=== PATIENT | female | born 1930 ===

== ENCOUNTER 2016-06-27 16:19 | Emergency (ER) | payer SELFPAY ==
[2016-06-27 16:19] VITALS: BMI 18.6
[2016-06-27 16:29] VITALS: BP 178/99; PULSE 84; RESP 17; TEMP 98.7; O2SAT 99
[2016-06-27 17:31] LABS: BASO % 0.5 % (0.0-2.0); EOS # 0.2 K/uL (0.0-0.7); EOS % 3.7 % (0.0-4.0); LYMPH # 2.2 K/uL (1.0-4.3); LYMPH % 40.9 % (20.0-40.0); MEAN CELL VOLUME 85.4 fl (81.0-99.0); MEAN CORPUSCULAR HEMOGLOBIN 27.6 pg (27.0-31.0); MEAN CORPUSCULAR HGB CONC 32.4 g/dL (33.0-37.0); MEAN PLATELET VOLUME 10.6 fl (7.2-11.7); MONO # 0.6 K/uL (0.0-0.8); MONO % 11.4 % (0.0-10.0); NEUT # 2.3 K/uL (1.8-7.0); NEUT % 43.5 % (50.0-75.0); RED CELL DISTRIBUTION WIDTH 14.2 % (11.5-14.5); WHITE BLOOD COUNT 5.3 K/uL (4.8-10.8)
[2016-06-27 17:41] LABS: ALB/GLOB RATIO 1.1 (1.0-2.1); ALKALINE PHOSPHATASE 62 U/L (38-126); ALT/SGPT 23 U/L (9-52); AST/SGOT 62 U/L (14-36); BILIRUBIN,TOTAL 1.6 mg/dl (0.2-1.3); BLOOD UREA NITROGEN 21 mg/dl (7-17); CALCIUM 9.2 mg/dL (8.4-10.2); CARBON DIOXIDE 25 mmol/L (22-30); CHLORIDE 101 mmol/L (98-107); GFR AFRICAN-AMERICAN > 60; GLUCOSE,RANDOM 105 mg/dL (65-105); SODIUM 139 mmol/l (132-148); TOTAL PROTEIN 9.2 G/DL (6.3-8.2)
[2016-06-27 17:42] LABS: POTASSIUM 5.2 MMOL/L (3.6-5.0)
[2016-06-27 17:54] LABS: PARTIAL THROMBOPLASTIN TIME 32.8 SECONDS (23.3-32.5)
--- NOTE | 2016-06-27 18:40 | ED PDOC ---
Lower Extremity Pain/Injury Time Seen by Provider: 06/27/16 16:38 Chief Complaint (Nursing): Lower Extremity Problem/Injury Chief Complaint (Provider): Lower Extremity Problem History Per: Patient History/Exam Limitations: no limitations Onset/Duration Of Symptoms: Days (6x months) Current Symptoms Are (Timing): Still Present Severity: Moderate Additional Complaint(s): 85 year old female with a pertinent medical history of CHF, hypertension, and A- fib presents to the ED for a medical evaluation. She reports that she had a stent placed in her right groin 6x months ago and has been having foot changes since then. She went to the clinic today for an evaluation, and they sent her to the ED for further evaluation because her feet were cold to the touch. She denies having any other medical complaints. PMD: [facility]. Past Medical History Reviewed: Historical Data, Nursing Documentation, Vital Signs Vital Signs: Last Vital Signs Temp 98.7 F 06/27/16 16:24 Pulse 84 06/27/16 16:24 Resp 17 06/27/16 16:24 BP 178/99 H 06/27/16 16:24 Pulse Ox 99 06/27/16 16:24 - Medical History PMH: Atrial Fibrillation, CHF, HTN, Hyperlipidemia, Pulmonary Embolism Denies: HIV, Chronic Kidney Disease - Surgical History Surgical History: Denies: Pacemaker - Family History Family History: States: Unknown Family Hx - Social History Alcohol: None Drugs: Denies - Home Medications Home Medications: Ambulatory Orders Medication Instructions Recorded Carvedilol [Coreg] 3.125 mg PO Q12 #0 tab 11/26/15 Enalapril Maleate [Vasotec] 2.5 mg PO DAILY #0 tab 11/26/15 Furosemide [Lasix] 20 mg PO DAILY #0 tab 11/26/15 Warfarin [Coumadin] 1 mg PO DAILY #0 tab 11/26/15 Atorvastatin [Lipitor] 40 mg PO DAILY 02/23/16 oxyCODONE/Acetaminophen [Percocet 1 tab PO Q8H PRN 02/23/16 5/325 mg Tab] - Allergies Allergies/Adverse Reactions: Allergies Allergy/AdvReac Type Severity Reaction Status Date / Time No Known Allergies Allergy Verified 06/27/16 16:24 Review of Systems ROS Statement: Except As Marked, All Systems Reviewed And Found Negative Constitutional: Negative for: Fever, Chills Musculoskeletal: Positive for: Other (feet feel cold) Physical Exam - Reviewed Nursing Documentation Reviewed: Yes Vital Signs Reviewed: Yes - Physical Exam Appears: Positive for: Well, Non-toxic, No Acute Distress Head Exam: Positive for: ATRAUMATIC, NORMOCEPHALIC Skin: Positive for: Normal Color Cardiovascular/Chest: Positive for: Regular Rate, Rhythm Respiratory: Positive for: Normal Breath Sounds. Negative for: Respiratory Distress Extremity: Positive for: Other (left lower extremity: no edema. Right foot: necrotic 4th digit. edema to 2nd and 3rd digits. Unable to elicit DP pulses bilaterally. Temperature is the same and cool on both feet. Patient has full ROM of her toes. Sensation is intact.). Negative for: Calf Tenderness Neurologic/Psych: Positive for: Alert, Oriented (3x) - Laboratory Results Result Diagrams: 06/27/16 17:15 06/27/16 17:15 - ECG O2 Sat by Pulse Oximetry: 99 (RA) Pulse Ox Interpretation: Normal Medical Decision Making Medical Decision Makin:38 Initial impression: 85 year old female for medical evaluation of feet. Initial plan: * CMP * CBC * SED rate * PTT * prothrombin time * blood culture * XRay foot right 3 view * US duplex lower extremity artery right limited * reevaluation 18:36 Case discussed with Podiatry resident. 19:00 Patient is signed out by me to El Cadet MD pending reevaluation and final disposition. Scribe Attestation: Documented by Kirstin Manrique, acting as a scribe for Neeta Velez MD. Provider Scribe Attestation: All medical record entries made by the Scribe were at my direction and personally dictated by me. I have reviewed the chart and agree that the record accurately reflects my personal performance of the history, physical exam, medical decision making, and the department course for this patient. I have also personally directed, reviewed, and agree with the discharge instructions and disposition.
--- NOTE | 2016-06-27 19:26 | ED PDOC ---
- Laboratory Results Result Diagrams: 06/27/16 17:15 06/27/16 17:15 - ECG O2 Sat by Pulse Oximetry: 99 (RA) Pulse Ox Interpretation: Normal - CT Scan/US US duplex right lower extremity Other Rad Studies (CT/US): Read By Radiologist, Radiology Report Reviewed Medical Decision Making Medical Decision Makin:00 Patient is signed out to me by Neeta Velez MD pending reevaluation and final disposition. 20:54 US right lower extremity is read and reviewed by radiologist FINDINGS: Right common femoral artery: Appears patent. Demonstrates abnormal monophasic waveforms. Peak systolic velocity is 64 cm per sec. Right superficial femoral artery: No detectable flow is seen, compatible with occlusion. This finding was also described on the prior report. Right popliteal artery: Appears patent. Demonstrates abnormal dampened waveforms. Peak systolic velocity is 52 cm/s. Right anterior tibial artery: Appears patent. Demonstrates abnormal dampened waveforms. Peak systolic velocity is 25 cm/s. Right posterior tibial artery: Appears patent. Demonstrates abnormal dampened waveforms. Peak systolic velocity is 26 cm/s. Right dorsalis pedis artery: No detectable flow is seen, compatible with occlusion. This finding was also described on prior report. IMPRESSION: Occlusion of the right superficial femoral artery. Occlusion of the right dorsalis pedis artery. Above findings were also described on the report from a prior lower extremity arterial ultrasound of 01/21/2016. Right common femoral, popliteal, anterior tibial, and posterior tibial arteries are patent, but demonstrate abnormal wave forms. See above for remaining findings. 20:54 Patient was evaluated by podiatry resident Dr. Anderson. He reports that the patient has stable dry gangrene. Patient is stable for discharge to follow up with [employer] client solutions consultant in [place] Dr. Pena. Spoke with Dr. [facility] resident. She will coordinate further with podiatry and vascular. There is agreement upon discharge plan. Return if symptoms persist or worsen. Scribe Attestation: Documented by Kirstin Manrique, acting as a scribe for El Cadet MD. Provider Scribe Attestation: All medical record entries made by the Scribe were at my direction and personally dictated by me. I have reviewed the chart and agree that the record accurately reflects my personal performance of the history, physical exam, medical decision making, and the department course for this patient. I have also personally directed, reviewed, and agree with the discharge instructions and disposition. Disposition - Clinical Impression Clinical Impression: Peripheral vascular disease - POA Present On Arrival: None - Disposition Referrals: [facility] [Outside] Rajani Pena DPM [Doctor Podiatric Medicine] - Disposition: Routine/Home Disposition Time: 21:10 Condition: STABLE Instructions: Peripheral Vascular Disease (ED) Print Language: BELARUSIAN
--- NOTE | 2016-06-27 20:47 | CP.PCM.CON ---
History of Present Illness - History of Present Illness History of Present Illness: Patient brought to ED by family after visit with PCP at the [facility] due to right foot 5th and 4th digit gangrene. Family states that the toes have been black for about 6 months and that they see Dr. Pena at [facility] for routine foot care. Denies pain to the area 0/10. Denies any drainage or foul odor to area. Mentions she has had vascular procedures done by Dr. Solares at [facility] involving multiple stents to RLE. Denies F/ C/N/V/SOB. Review of Systems - Constitutional Constitutional: As Per HPI Past Patient History - Past Medical History & Family History Past Medical History?: Yes - Past Social History Alcohol: None Drugs: Denies - CARDIAC Hx Atrial Fibrillation: Yes Hx Congestive Heart Failure: Yes Hx Hypertension: Yes Hx Pacemaker: No - PULMONARY Hx Pulmonary Embolism: Yes - NEUROLOGICAL Hx Paralysis: No - HEENT Hx HEENT Problems: Yes Hx Cataracts: Yes - RENAL Hx Chronic Kidney Disease: No - ENDOCRINE/METABOLIC Hx Endocrine Disorders: No - HEMATOLOGICAL/ONCOLOGICAL Hx Human Immunodeficiency Virus (HIV): No - INTEGUMENTARY Hx Dermatological Problems: No - MUSCULOSKELETAL/RHEUMATOLOGICAL Hx Musculoskeletal Disorders: No - GASTROINTESTINAL Hx Gastrointestinal Disorders: No - GENITOURINARY/GYNECOLOGICAL Hx Genitourinary Disorders: No - PSYCHIATRIC Hx Psychophysiologic Disorder: No Hx Substance Use: No - SURGICAL HISTORY Hx Surgeries: Yes Other/Comment: greenfiel filter - ANESTHESIA Hx Anesthesia Reactions: Yes (DIFFICULTY WAKING) Hx Malignant Hyperthermia: No Meds Allergies/Adverse Reactions: Allergies Allergy/AdvReac Type Severity Reaction Status Date / Time No Known Allergies Allergy Verified 06/27/16 16:24 Physical Exam - Constitutional Appears: No Acute Distress - Extremities Exam Additional comments: RLE exam: Vascular: Dp and PT pulses non-palpable, CFT >5sec, temperature of digits cool to touch. Derm: Dry gangrenous changes to distal tip of 5th digit and distal 4th from PIPJ, no drainage, no malodor. Surrounding skin thin, shiny with diffuse erythema, no calor. Neuro: Gross sensation diminished. MSK: Decreased ROM at digits and MTPJs with rigid hammertoe contracture. MMT 4 /5. - Neurological Exam Neurological exam: Alert Results - Vital Signs Recent Vital Signs: Last Vital Signs Temp 98.7 F 06/27/16 16:24 Pulse 84 06/27/16 16:24 Resp 17 06/27/16 16:24 BP 178/99 H 06/27/16 16:24 Pulse Ox 99 06/27/16 20:17 - Labs Result Diagrams: 06/27/16 17:15 06/27/16 17:15 Labs: Laboratory Results - last 24 hr 06/27/16 06/27/16 06/27/16 17:15 17:15 17:15 WBC 5.3 RBC 5.27 H Hgb 14.6 Hct 45.0 MCV 85.4 MCH 27.6 MCHC 32.4 L RDW 14.2 Plt Count 154 MPV 10.6 Neut % (Auto) 43.5 L Lymph % (Auto) 40.9 H [place] % (Auto) 11.4 H Eos % (Auto) 3.7 Baso % (Auto) 0.5 Neut # 2.3 Lymph # 2.2 [place] # 0.6 Eos # 0.2 Baso # 0.0 ESR 24 PT 20.6 H INR 1.98 H APTT 32.8 H Sodium 139 Potassium 5.2 H Chloride 101 Carbon Dioxide 25 Anion Gap 18 BUN 21 H Creatinine 0.7 Est GFR ( Amer) > 60 Est GFR (Non-Af Amer) > 60 Random Glucose 105 Calcium 9.2 Total Bilirubin 1.6 H AST 62 H D ALT 23 Alkaline Phosphatase 62 Total Protein 9.2 H Albumin 4.9 Globulin 4.4 H Albumin/Globulin Ratio 1.1 Assessment & Plan - Assessment and Plan (Free Text) Assessment: 85 y/o female with dry gangrene of right foot 4th and 5th digits secondary to PAD, no clinical signs of infection. Plan: -evaluated and treated with all questions addressed and answered. -discussed with Dr. Aparicio. -educated on etiology of diagnoses. -advised to follow up with vascular doctor as outpt. -advised to follow up with Dr. Pena or Dr. Aparicio as outpt, family demonstrates understanding.
--- NOTE | 2016-06-27 20:55 | US ---
EXAM: US Duplex Right Lower Extremity Arteries CLINICAL HISTORY: 85 years old, female; Signs and symptoms; Other: Cold rt foot; Additional info: Cold r foot TECHNIQUE: Real-time ultrasound scan of the arteries of the right lower extremity with 2-D jain scale, color Doppler flow and spectral waveform analysis. EXAM DATE/TIME: 06/27/2016 4:44 PM COMPARISON: Report from a previous exam of 01/21/2016. FINDINGS: Right common femoral artery: Appears patent. Demonstrates abnormal monophasic waveforms. Peak systolic velocity is 64 cm per sec. Right superficial femoral artery: No detectable flow is seen, compatible with occlusion. This finding was also described on the prior report. Right popliteal artery: Appears patent. Demonstrates abnormal dampened waveforms. Peak systolic velocity is 52 cm/s. Right anterior tibial artery: Appears patent. Demonstrates abnormal dampened waveforms. Peak systolic velocity is 25 cm/s. Right posterior tibial artery: Appears patent. Demonstrates abnormal dampened waveforms. Peak systolic velocity is 26 cm/s. Right dorsalis pedis artery: No detectable flow is seen, compatible with occlusion. This finding was also described on prior report. IMPRESSION: Occlusion of the right superficial femoral artery. Occlusion of the right dorsalis pedis artery. Above findings were also described on the report from a prior lower extremity arterial ultrasound of 01/21/2016. Right common femoral, popliteal, anterior tibial, and posterior tibial arteries are patent, but demonstrate abnormal wave forms. See above for remaining findings.
--- NOTE | 2016-06-28 14:06 | RAD ---
PROCEDURE: Right Foot Radiographs. HISTORY: 4th digit necrotic COMPARISON: 01/21/2016. FINDINGS: BONES: No radiographic evidence of acute osteomyelitis. Particular attention directed to the 4th digit. Diffuse osteopenia identified. Questionable old and healed 5th metatarsal fracture. JOINTS: Osteoarthritic changes. These primarily affect proximal and distal interphalangeal joint distribution. SOFT TISSUES: Normal. OTHER FINDINGS: None. IMPRESSION: No acute findings related to/accounting for the clinical presentation.
== END 2016-06-27 21:33 | disposition home or self-care (01) ==
LOC: H.ER 16:19
DX: I73.9 Peripheral vascular disease, unspecified (principal); I48.91 Unspecified atrial fibrillation; I10 Essential (primary) hypertension; E78.5 Hyperlipidemia, unspecified; I50.9 Heart failure, unspecified; Z86.711 Personal history of pulmonary embolism

== ENCOUNTER 2016-11-10 17:25 | Observation (INO) | payer SELFPAY ==
[2016-11-10 17:25] VITALS: BMI 15.2
[2016-11-10] MEDS ORDERED: Labetalol 5 mg/ml Inj 20ML IVP STA (18:28)
--- NOTE | 2016-11-10 18:42 | ED PDOC ---
HPI: General Adult Time Seen by Provider: 11/10/16 18:27 Chief Complaint (Nursing): Headache Chief Complaint (Provider): Headache History Per: Patient History/Exam Limitations: no limitations Onset/Duration Of Symptoms: Days (x2) Current Symptoms Are (Timing): Still Present Additional Complaint(s): Edith Archuleta is an 86 year old female with previous medical history of hypertension, who presents to the emergency department, accompanied by family for an evaluation of high blood pressure associated with palpitations ongoing for 2 days. Denied any fever, chills, chest pain, shortness of breath, headache and dizziness. PMD: none provided Past Medical History Reviewed: Historical Data, Nursing Documentation, Vital Signs Vital Signs: Last Vital Signs Temp 97.8 F 11/11/16 08:21 Pulse 59 L 11/11/16 08:21 Resp 18 11/11/16 08:21 BP 175/67 H 11/11/16 08:21 Pulse Ox 99 11/11/16 08:21 - Medical History PMH: Atrial Fibrillation, CHF, HTN, Hyperlipidemia, Pulmonary Embolism Denies: HIV, Chronic Kidney Disease - Surgical History Surgical History: Denies: Pacemaker - Family History Family History: States: Unknown Family Hx - Home Medications Home Medications: Ambulatory Orders Medication Instructions Recorded Carvedilol [Coreg] 3.125 mg PO DAILY 11/10/16 Enalapril Maleate [Vasotec] 2.5 mg PO DAILY 11/10/16 Furosemide [Lasix] 20 mg PO DAILY 11/10/16 Warfarin [Coumadin] 1 mg PO DAILY 11/10/16 - Allergies Allergies/Adverse Reactions: Allergies Allergy/AdvReac Type Severity Reaction Status Date / Time No Known Allergies Allergy Verified 06/27/16 16:24 Review of Systems ROS Statement: Except As Marked, All Systems Reviewed And Found Negative Constitutional: Negative for: Fever, Chills Cardiovascular: Positive for: Palpitations. Negative for: Chest Pain Respiratory: Negative for: Shortness of Breath Neurological: Negative for: Headache, Dizziness Physical Exam - Reviewed Nursing Documentation Reviewed: Yes Vital Signs Reviewed: Yes - Physical Exam Appears: Positive for: Well, Non-toxic, No Acute Distress Head Exam: Positive for: ATRAUMATIC, NORMAL INSPECTION, NORMOCEPHALIC Skin: Positive for: Normal Color Cardiovascular/Chest: Positive for: Regular Rate, Rhythm. Negative for: Chest Non Tender, Murmur Respiratory: Positive for: Normal Breath Sounds, Accessory Muscle Use. Negative for: Decreased Breath Sounds, Crackles, Rales, Rhonchi, Wheezing, Respiratory Distress Gastrointestinal/Abdominal: Positive for: Normal Exam, Bowel Sounds, Soft. Negative for: Tenderness Extremity: Positive for: Normal ROM. Negative for: Tenderness, Pedal Edema, Calf Tenderness, Deformity Neurologic/Psych: Positive for: Alert, Oriented - Laboratory Results Result Diagrams: 11/10/16 18:44 11/10/16 18:44 - ECG O2 Sat by Pulse Oximetry: 98 (RA) Pulse Ox Interpretation: Normal Medical Decision Making Medical Decision Making: Initial Impression: Palpitations Initial Plan: * EKG * CMP * Troponin I * CBC * CXR * Trandate 10mg IVP Scribe Attestation: Documented by Rosa Bueno, acting as a scribe for Bertram Garcia MD. Provider Scribe Attestation: All medical record entries made by the Scribe were at my direction and personally dictated by me. I have reviewed the chart and agree that the record accurately reflects my personal performance of the history, physical exam, medical decision making, and the department course for this patient. I have also personally directed, reviewed, and agree with the discharge instructions and disposition. Disposition - Clinical Impression Clinical Impression: Hypertension - Patient ED Disposition Is Patient to be Admitted: Transfer of Care - Disposition Disposition: Transfer of Care Disposition Time: 19:00 Condition: FAIR Patient Signed Over To: Brittnee Liriano
[2016-11-10 18:50] LABS: BASO # 0.1 K/uL (0.0-0.2); BASO % 0.9 % (0.0-2.0); EOS # 0.3 K/uL (0.0-0.7); EOS % 4.7 % (0.0-4.0); HEMATOCRIT 43.8 % (34.0-47.0); LYMPH # 1.7 K/uL (1.0-4.3); LYMPH % 26.1 % (20.0-40.0); MEAN CELL VOLUME 87.7 fl (81.0-99.0); MEAN CORPUSCULAR HEMOGLOBIN 28.8 pg (27.0-31.0); MEAN CORPUSCULAR HGB CONC 32.9 g/dL (33.0-37.0); MEAN PLATELET VOLUME 10.6 fl (7.2-11.7); MONO # 0.7 K/uL (0.0-0.8); MONO % 10.6 % (0.0-10.0); NEUT # 3.7 K/uL (1.8-7.0); NEUT % 57.7 % (50.0-75.0); NRBC % 0.2 % (0.0-0.0); RED CELL DISTRIBUTION WIDTH 13.4 % (11.5-14.5); WHITE BLOOD COUNT 6.5 K/uL (4.8-10.8)
[2016-11-10 19:04] LABS: ALB/GLOB RATIO 1.3 (1.0-2.1); ALKALINE PHOSPHATASE 71 U/L (38-126); ALT/SGPT 23 U/L (9-52); AST/SGOT 29 U/L (14-36); BILIRUBIN,TOTAL 0.6 mg/dl (0.2-1.3); BLOOD UREA NITROGEN 20 mg/dl (7-17); CALCIUM 9.8 mg/dL (8.4-10.2); CARBON DIOXIDE 26 mmol/L (22-30); CHLORIDE 103 mmol/L (98-107); GFR AFRICAN-AMERICAN > 60; GLUCOSE,RANDOM 91 mg/dL (65-105); POTASSIUM 4.3 MMOL/L (3.6-5.0); SODIUM 142 mmol/l (132-148); TOTAL PROTEIN 8.3 G/DL (6.3-8.2)
--- NOTE | 2016-11-10 19:20 | ED PDOC ---
- Laboratory Results Result Diagrams: 11/10/16 18:44 11/10/16 18:44 - ECG O2 Sat by Pulse Oximetry: 98 (RA) Pulse Ox Interpretation: Normal Medical Decision Making Medical Decision Making: Time: 1899 --Patient was endorsed to provider by Dr. Bertram Garcia. Pending labs results and re-evaluation. 1999 Labs unremarkable. BP has improved but pt is now bradycardic, with some symptoms. Needs observation for continued cardiac optimization. FATIMAH Rodriguez FP resident for hospitalization. Scribe Attestation: Documented by Rosa Bueno, acting as a scribe for Brittnee Liriano MD. Provider Scribe Attestation: All medical record entries made by the Scribe were at my direction and personally dictated by me. I have reviewed the chart and agree that the record accurately reflects my personal performance of the history, physical exam, medical decision making, and the department course for this patient. I have also personally directed, reviewed, and agree with the discharge instructions and disposition. Disposition Counseled Patient/Family Regarding: Studies Performed, Diagnosis - Clinical Impression Clinical Impression: Hypertension, Bradycardia - POA Present On Arrival: None - Disposition Disposition: Hospitalized as Observation Patient Disposition Time: 19:00 Condition: FAIR
--- NOTE | 2016-11-10 21:10 | CP.PCM.HP ---
Addendum entered and electronically signed by Fern Rodriguez MD 11/10/16 23:44: Please note home medication was adjusted as follows coreg 3.125 Q12 will remain , will not increase dose Enalapril has been increased from 2.5 daily to 10mg daily Original Note: History of Present Illness - History of Present Illness History of Present Illness: 86 y/o female with pmhx of CHF (LVEF 15-20%), chronic Afib, HTN and severe PVD ( multiple stents) with chronic right foot infections, was sent by her PMD today to the ED for hypertensive urgency. Pt initially went to her PMD for BP check, since at her last visit 10 days prior her BP was elevated, pt was instructed to be adherent to her medications and return to clinic today for BP check. At clinic today her BP was 205/75, with a repeat of 216/65. Pt did not have any symptoms, denies headache, dizziness, visual changes; but was sent to ED for further management. At ED pt was given a dose of 10mg of labetalol, and per ED physician sign out to me for admission, Pt became bradycardic after the labetalol dose. Pt seen at bedside, states she feels ok, still denies any chest pain, sob, headache, dizziness, visual changes. PMD- [facility] Present on Admission - Present on Admission Any Indicators Present on Admission: No Review of Systems - Review of Systems All systems: reviewed and no additional remarkable complaints except (per HPI) Past Patient History - Past Medical History & Family History Past Medical History?: Yes - Past Social History Smoking Status: Never Smoked - CARDIAC Hx Atrial Fibrillation: Yes Hx Congestive Heart Failure: Yes Hx Hypertension: Yes Hx Pacemaker: No - PULMONARY Hx Pulmonary Embolism: Yes - NEUROLOGICAL Hx Paralysis: No - HEENT Hx HEENT Problems: Yes Hx Cataracts: Yes - RENAL Hx Chronic Kidney Disease: No - ENDOCRINE/METABOLIC Hx Endocrine Disorders: No - HEMATOLOGICAL/ONCOLOGICAL Hx Human Immunodeficiency Virus (HIV): No - INTEGUMENTARY Hx Dermatological Problems: No - MUSCULOSKELETAL/RHEUMATOLOGICAL Hx Musculoskeletal Disorders: No - GASTROINTESTINAL Hx Gastrointestinal Disorders: No - GENITOURINARY/GYNECOLOGICAL Hx Genitourinary Disorders: No - PSYCHIATRIC Hx Psychophysiologic Disorder: No Hx Substance Use: No - SURGICAL HISTORY Hx Surgeries: Yes Other/Comment: greenfiel filter - ANESTHESIA Hx Anesthesia Reactions: Yes (DIFFICULTY WAKING) Hx Malignant Hyperthermia: No Meds Allergies/Adverse Reactions: Allergies Allergy/AdvReac Type Severity Reaction Status Date / Time No Known Allergies Allergy Verified 06/27/16 16:24 Physical Exam - Constitutional Appears: Non-toxic, No Acute Distress - Head Exam Head Exam: NORMOCEPHALIC - Eye Exam Eye Exam: Normal appearance, PERRL Pupil Exam: NORMAL ACCOMODATION - ENT Exam ENT Exam: Mucous Membranes Moist - Respiratory Exam Respiratory Exam: Clear to Auscultation Bilateral, NORMAL BREATHING PATTERN. absent: Rhonchi, Wheezes - Cardiovascular Exam Cardiovascular Exam: Irregular Rhythm, +S1, +S2 - GI/Abdominal Exam GI & Abdominal Exam: Normal Bowel Sounds, Soft. absent: Tenderness - Extremities Exam Extremities exam: Negative for: calf tenderness, pedal edema Additional comments: right foot: appears very reddish-black left foot: +pulse, color wnl - Neurological Exam Neurological exam: Alert, CN II-XII Intact, Oriented x3 Results - Vital Signs Recent Vital Signs: Last Vital Signs Temp 97.3 F L 11/10/16 17:36 Pulse 64 11/10/16 19:14 Resp 20 11/10/16 17:36 BP 161/137 H 11/10/16 19:14 Pulse Ox 98 11/10/16 19:20 - Labs Result Diagrams: 11/10/16 18:44 11/10/16 18:44 Labs: Laboratory Results - last 24 hr 11/10/16 11/10/16 18:44 18:44 WBC 6.5 RBC 4.99 Hgb 14.4 Hct 43.8 MCV 87.7 D MCH 28.8 MCHC 32.9 L RDW 13.4 Plt Count 143 MPV 10.6 Neut % (Auto) 57.7 Lymph % (Auto) 26.1 [place] % (Auto) 10.6 H Eos % (Auto) 4.7 H Baso % (Auto) 0.9 Neut # 3.7 Lymph # 1.7 [place] # 0.7 Eos # 0.3 Baso # 0.1 Sodium 142 Potassium 4.3 Chloride 103 Carbon Dioxide 26 Anion Gap 17 BUN 20 H Creatinine 0.8 Est GFR ( Amer) > 60 Est GFR (Non-Af Amer) > 60 Random Glucose 91 Calcium 9.8 Total Bilirubin 0.6 AST 29 ALT 23 Alkaline Phosphatase 71 Troponin I < 0.0120 Total Protein 8.3 H Albumin 4.7 Globulin 3.6 Albumin/Globulin Ratio 1.3 Assessment & Plan - Assessment and Plan (Free Text) Assessment: 86 y/o female with an extensive cardiac history being admitted for hypertensive urgency Plan: 1. Hypertensive urgency admit to tele s/p 10mg labetalol IVP last echo was 11/2015- EF of 15-20% had cardiac catherization 05/2016 has an appointment with Manager Maintenance Dr. Knox- 11/21/2016- can consider consulting cardiology in the morning if BP elevation persist pt's home medication coreg increased from 3.125mg Q12hrs to 6.25mg Q12, rest of home medication remain at same dosage continue Enalipril 2.5mg daily 2. Systolic Congestive Heart Failure last echo 11/2015- EF of 15-20% need repeat echo in november continue with lasix 20mg daily 3. Afib with RVR continue with warfarin 1mg daily INR ordered for the AM, f/u 4. PAD had cath and vascular procedure in 05/2016 and 06/2016 at [facility] Right foot remain without flow monitor 5. Diet- heart healthy 6. DVT prophylaxis- pt on warfarin +scds
[2016-11-11] MEDS ORDERED: Influenza Vaccine 18yr & older 0.5 ML/45 MCG SYR IM ONE (06:00)
[2016-11-11 08:22] VITALS: TEMP 97.8
--- NOTE | 2016-11-11 08:51 | RAD ---
HISTORY: hypertension COMPARISON: Comparison is made to 01/21/2016 TECHNIQUE: Chest PA and lateral FINDINGS: LUNGS: Hyperinflation of the lungs is again noted. No evidence of focal infiltrate or consolidation in the lungs PLEURA: No significant pleural effusion identified. No pneumothorax apparent. CARDIOVASCULAR: Normal. OSSEOUS STRUCTURES: No significant abnormalities. VISUALIZED UPPER ABDOMEN: Normal. OTHER FINDINGS: None. IMPRESSION: No active disease.
[2016-11-11 08:52] LABS: PARTIAL THROMBOPLASTIN TIME 44.3 Seconds (25.6-37.1)
--- NOTE | 2016-11-11 11:32 | CP.PCM.DIS ---
Provider - Provider Date of Admission: 11/10/16 19:33 Attending physician: Willy Alva MD Time Spent in preparation of Discharge (in minutes): 20 Diagnosis - Discharge Diagnosis (1) Afib Status: Acute (2) Hypertension Status: Acute Hospital Course - Lab Results Lab Results: Most Recent Lab Values WBC 6.5 K/uL (4.8-10.8) 11/10/16 18:44 RBC 4.99 Mil/uL (3.80-5.20) 11/10/16 18:44 Hgb 14.4 g/dL (12.0-16.0) 11/10/16 18:44 Hct 43.8 % (34.0-47.0) 11/10/16 18:44 MCV 87.7 fl (81.0-99.0) D 11/10/16 18:44 MCH 28.8 pg (27.0-31.0) 11/10/16 18:44 MCHC 32.9 g/dL (33.0-37.0) L 11/10/16 18:44 RDW 13.4 % (11.5-14.5) 11/10/16 18:44 Plt Count 143 K/uL (130-400) 11/10/16 18:44 MPV 10.6 fl (7.2-11.7) 11/10/16 18:44 Neut % (Auto) 57.7 % (50.0-75.0) 11/10/16 18:44 Lymph % (Auto) 26.1 % (20.0-40.0) 11/10/16 18:44 Guthrie % (Auto) 10.6 % (0.0-10.0) H 11/10/16 18:44 Eos % (Auto) 4.7 % (0.0-4.0) H 11/10/16 18:44 Baso % (Auto) 0.9 % (0.0-2.0) 11/10/16 18:44 Neut # 3.7 K/uL (1.8-7.0) 11/10/16 18:44 Lymph # 1.7 K/uL (1.0-4.3) 11/10/16 18:44 Guthrie # 0.7 K/uL (0.0-0.8) 11/10/16 18:44 Eos # 0.3 K/uL (0.0-0.7) 11/10/16 18:44 Baso # 0.1 K/uL (0.0-0.2) 11/10/16 18:44 PT 23.7 Seconds (9.8-13.1) H 11/11/16 07:00 INR 2.3 (0.9-1.2) H 11/11/16 07:00 APTT 44.3 Seconds (25.6-37.1) H 11/11/16 07:00 Sodium 142 mmol/l (132-148) 11/10/16 18:44 Potassium 4.3 MMOL/L (3.6-5.0) 11/10/16 18:44 Chloride 103 mmol/L (98-107) 11/10/16 18:44 Carbon Dioxide 26 mmol/L (22-30) 11/10/16 18:44 Anion Gap 17 (10-20) 11/10/16 18:44 BUN 20 mg/dl (7-17) H 11/10/16 18:44 Creatinine 0.8 mg/dL (0.7-1.2) 11/10/16 18:44 Est GFR ( Amer) > 60 11/10/16 18:44 Est GFR (Non-Af Amer) > 60 11/10/16 18:44 Random Glucose 91 mg/dL (65-105) 11/10/16 18:44 Calcium 9.8 mg/dL (8.4-10.2) 11/10/16 18:44 Total Bilirubin 0.6 mg/dl (0.2-1.3) 11/10/16 18:44 AST 29 U/L (14-36) 11/10/16 18:44 ALT 23 U/L (9-52) 11/10/16 18:44 Alkaline Phosphatase 71 U/L (38-126) 11/10/16 18:44 Troponin I < 0.0120 ng/mL (0.00-0.120) 11/10/16 18:44 Total Protein 8.3 G/DL (6.3-8.2) H 11/10/16 18:44 Albumin 4.7 g/dL (3.5-5.0) 11/10/16 18:44 Globulin 3.6 gm/dL (2.2-3.9) 11/10/16 18:44 Albumin/Globulin Ratio 1.3 (1.0-2.1) 11/10/16 18:44 - Hospital Course Hospital Course: 86 y/o female with pmhx of CHF (LVEF 15-20%), chronic Afib, HTN and severe PVD ( multiple stents) with chronic right foot infections admitted for hypertensive urgency. At PMD office, BP was 205/75 and repeat BP 216/65 and then in the ED pt recieved 10mg of labetalol IV. Medications adjusted during admission to coreg 3.125mg BID and enalapril 10mg daily. Pt to follow up with PMD and Cardio outpatient. Discharge Exam - Head Exam Head Exam: ATRAUMATIC, NORMAL INSPECTION, NORMOCEPHALIC - Eye Exam Eye Exam: Normal appearance - ENT Exam ENT Exam: Mucous Membranes Moist - Neck Exam Neck exam: Full Rom - Respiratory Exam Respiratory Exam: NORMAL BREATHING PATTERN - Cardiovascular Exam Cardiovascular Exam: Irregular Rhythm - GI/Abdominal Exam GI & Abdominal Exam: Normal Bowel Sounds, Soft - Extremities Exam Extremities exam: normal inspection - Back Exam Back exam: NORMAL INSPECTION - Neurological Exam Neurological exam: Alert, Oriented x3 - Skin Skin Exam: Dry, Warm Discharge Plan - Discharge Medications Prescriptions: Enalapril Maleate [Vasotec] 10 mg PO DAILY #30 tab - Follow Up Plan Condition: FAIR Disposition: HOME/ ROUTINE Additional Instructions: start new medications and stop old dose: enalapril 10mg once daily coreg 3.125mg BID Referrals: Shawn Aquino MD [Family Provider] - Noman Knox MD [Staff Provider] -
[2016-11-11 12:42] VITALS: BP 169/59; PULSE 67; RESP 20
--- NOTE | 2016-11-11 13:31 | CARD ---
APPROVED REPORT EKG Measurement Heart [id number] <Conclusion> Sinus rhythm with occasional premature ventricular complexes Left ventricular hypertrophy with repolarization abnormality Abnormal ECG
[2016-11-11 17:10] VITALS: O2SAT 98
== END 2016-11-11 14:00 | disposition home or self-care (01) ==
LOC: H.ER 17:25 → H.ERHOLD 19:33 → H.TEL 11-11 00:39
PROVIDERS: ADMIT Family Medicine; ATTEND Family Medicine
DX: I48.2 Chronic atrial fibrillation (principal); E78.5 Hyperlipidemia, unspecified; I11.0 Hypertensive heart disease with heart failure; I16.0 Hypertensive urgency; I73.9 Peripheral vascular disease, unspecified; I50.9 Heart failure, unspecified; Z79.01 Long term (current) use of anticoagulants; Z86.711 Personal history of pulmonary embolism; H26.9 Unspecified cataract; R00.1 Bradycardia, unspecified; R00.2 Palpitations; R51 Headache; Z23 Encounter for immunization
CPT/HCPCS: 36415; 71020; 80053; 82948; 84484; 85025; 85610; 85730; 90471; 93005; 96374; 99285; G0378; Q2035

== ENCOUNTER 2017-02-20 21:49 | Emergency (ER) | payer SELFPAY ==
[2017-02-20 21:49] VITALS: BMI 15.2
[2017-02-20 22:14] VITALS: BP 132/71; PULSE 73; RESP 18; TEMP 98; O2SAT 95
[2017-02-20] MEDS ORDERED: Sodium Chloride 0.9% 1,000 ML IV STA (22:29)
--- NOTE | 2017-02-20 22:45 | ED PDOC ---
HPI: Abdomen Time Seen by Provider: 02/20/17 22:03 Chief Complaint (Nursing): GI Problem Chief Complaint (Provider): Diarrhea History Per: Patient, Family History/Exam Limitations: no limitations Onset/Duration Of Symptoms: Days (x3) Current Symptoms Are (Timing): Still Present Additional Complaint(s): Edith Archuleta is an 86 year old female, with a past medical history of hypertension, who presents with 3 days of recurrent diarrhea. Family reports patient is having 8 episodes of watery non-bloody diarrhea per day. No associated nausea, vomiting, fever, or appetite change. She does complain of abdominal cramping. No recent travel. PMD: [facility] Past Medical History Reviewed: Historical Data, Nursing Documentation, Vital Signs Vital Signs: Last Vital Signs Temp 98 F 02/20/17 22:08 Pulse 73 02/20/17 22:08 Resp 18 02/20/17 22:08 BP 132/71 02/20/17 22:08 Pulse Ox 95 02/20/17 22:47 - Medical History PMH: Atrial Fibrillation, CHF, HTN, Hyperlipidemia, Pulmonary Embolism Denies: HIV, Chronic Kidney Disease - Surgical History Surgical History: Denies: Pacemaker Other surgeries: Right eye cataract surgery - Family History Family History: States: Unknown Family Hx - Social History Current smoker - smoking cessation education provided: No Alcohol: None Drugs: Denies - Home Medications Home Medications: Ambulatory Orders Medication Instructions Recorded Warfarin [Coumadin] 1 mg PO DAILY 11/10/16 Carvedilol [Coreg] 3.125 mg PO DAILY tab 11/11/16 Enalapril Maleate [Vasotec] 10 mg PO DAILY #30 tab 11/11/16 Furosemide [Lasix] 20 mg PO DAILY #30 tab 11/11/16 Dicyclomine [Bentyl] 20 mg PO Q12 PRN #20 tab 02/20/17 - Allergies Allergies/Adverse Reactions: Allergies Allergy/AdvReac Type Severity Reaction Status Date / Time No Known Allergies Allergy Verified 06/27/16 16:24 Review of Systems ROS Statement: Except As Marked, All Systems Reviewed And Found Negative Constitutional: Negative for: Fever Gastrointestinal: Positive for: Abdominal Pain, Diarrhea. Negative for: Nausea , Vomiting, Other (appetite change) Physical Exam - Reviewed Nursing Documentation Reviewed: Yes Vital Signs Reviewed: Yes - Physical Exam Appears: Positive for: Non-toxic, No Acute Distress Head Exam: Positive for: ATRAUMATIC, NORMOCEPHALIC Skin: Positive for: Normal Color, Warm, Dry Eye Exam: Positive for: EOMI, Normal appearance, PERRL ENT: Positive for: Other (Mucous membranes dry) Neck: Positive for: Normal, Painless ROM, Supple Cardiovascular/Chest: Positive for: Regular Rate, Rhythm. Negative for: Murmur Respiratory: Positive for: Normal Breath Sounds. Negative for: Accessory Muscle Use, Respiratory Distress Gastrointestinal/Abdominal: Positive for: Normal Exam, Soft. Negative for: Tenderness, Guarding, Rebound Back: Positive for: Normal Inspection. Negative for: L CVA Tenderness, R CVA Tenderness, Vertebral Tenderness Extremity: Positive for: Normal ROM, Capillary Refill (< 2 sec). Negative for: Deformity Neurologic/Psych: Positive for: Alert, Oriented - Laboratory Results Result Diagrams: 02/20/17 22:50 02/20/17 22:50 - ECG O2 Sat by Pulse Oximetry: 95 (RA) Pulse Ox Interpretation: Normal Medical Decision Making Medical Decision Making: Time: 22:29 Initial Impression: 86 y/o female with diarrheal illness Initial Plan: --Bentyl 20 mg PO --Zofran 4 mg IV --Labs --EKG --IV fluids at 150 ml/hr --Reevaluation 23:30 Labs reviewed demonstrate no clinically significant abnormalities Patient reports improvement in symptoms and is stable on discharge Dx Acute Gastroenteritis FU PCP 2 days, BRAT diet, RX Bentyl Scribe Attestation: Documented by Sonia Sampson, acting as a scribe for El Cadet MD Provider Scribe Attestation: All medical record entries made by the Scribe were at my direction and personally dictated by me. I have reviewed the chart and agree that the record accurately reflects my personal performance of the history, physical exam, medical decision making, and the department course for this patient. I have also personally directed, reviewed, and agree with the discharge instructions and disposition. Disposition - Clinical Impression Clinical Impression: Gastroenteritis - Disposition Disposition: Routine/Home Disposition Time: 23:30 Condition: STABLE Prescriptions: Dicyclomine [Bentyl] 20 mg PO Q12 PRN #20 tab PRN Reason: diarrhea/abdominal pain Instructions: Gastroenteritis (ED) Forms: [employer] (Estonian) Print Language: WELSH
[2017-02-20 23:05] LABS: BASO # 0.1 K/uL (0.0-0.2); BASO % 1.6 % (0.0-2.0); EOS # 0.1 K/uL (0.0-0.7); EOS % 2.5 % (0.0-4.0); HEMOGLOBIN 14.5 g/dL (12.0-16.0); LYMPH # 1.2 K/uL (1.0-4.3); LYMPH % 22.8 % (20.0-40.0); MEAN CELL VOLUME 88.9 fl (81.0-99.0); MEAN CORPUSCULAR HEMOGLOBIN 29.4 pg (27.0-31.0); MEAN CORPUSCULAR HGB CONC 33.1 g/dL (33.0-37.0); MONO # 0.9 K/uL (0.0-0.8); MONO % 16.2 % (0.0-10.0); NEUT # 3.1 K/uL (1.8-7.0); NEUT % 56.9 % (50.0-75.0); NRBC % 0.1 % (0.0-0.0); RBC 4.93 Mil/uL (3.80-5.20); RED CELL DISTRIBUTION WIDTH 12.2 % (11.5-14.5); WHITE BLOOD COUNT 5.4 K/uL (4.8-10.8)
[2017-02-20 23:12] LABS: ALB/GLOB RATIO 1.2 (1.0-2.1); ALBUMIN 4.5 g/dL (3.5-5.0); CALCIUM 9.3 mg/dL (8.4-10.2)
[2017-02-20 23:37] LABS: SQUAMOUS EPITHIAL < 1 /hpf (0-5); URINE BILIRUBIN NEGATIVE (NEGATIVE); URINE BLOOD MODERATE (NEGATIVE); URINE CLARITY CLEAR (Clear); URINE COLOR YELLOW (YELLOW); URINE GLUCOSE (UA) NEG (Normal); URINE LEUKOCYTE ESTERASE NEG Leu/uL (Negative); URINE NITRATE NEGATIVE (NEGATIVE); URINE PROTEIN NEGATIVE (NEGATIVE); URINE UROBILINOGEN 0.2-1.0 mg/dL (0.2-1.0)
== END 2017-02-21 00:03 | disposition home or self-care (01) ==
LOC: H.ER 21:49
DX: K52.9 Noninfective gastroenteritis and colitis, unspecified (principal); Z86.711 Personal history of pulmonary embolism; E78.5 Hyperlipidemia, unspecified; I11.0 Hypertensive heart disease with heart failure; I48.91 Unspecified atrial fibrillation; Z79.01 Long term (current) use of anticoagulants
CPT/HCPCS: 80053; 81003; 83605; 83690; 85025; 99284; J2405; J7040

== ENCOUNTER 2017-04-03 19:21 | Inpatient (IN) | payer MEDICAID, SELFPAY ==
[2017-04-03 19:22] VITALS: BMI 15.2
[2017-04-03] MEDS ORDERED: Sodium Chloride 0.9% 1,000 ML IV STA (20:27)
[2017-04-03 21:35] LABS: BASO % 0.4 % (0.0-2.0); HEMOGLOBIN 13.8 g/dL (12.0-16.0); LYMPH % 10.3 % (20.0-40.0); MEAN CELL VOLUME 88.3 fl (81.0-99.0); MEAN CORPUSCULAR HEMOGLOBIN 29.2 pg (27.0-31.0); MEAN CORPUSCULAR HGB CONC 33.1 g/dL (33.0-37.0); MEAN PLATELET VOLUME 11.2 fl (7.2-11.7); MONO # 0.9 K/uL (0.0-0.8); MONO % 9.8 % (0.0-10.0); NEUT # 7.8 K/uL (1.8-7.0); NEUT % 79.5 % (50.0-75.0); NRBC % 0.1 % (0.0-0.0); RBC 4.71 Mil/uL (3.80-5.20); RED CELL DISTRIBUTION WIDTH 12.8 % (11.5-14.5); WHITE BLOOD COUNT 9.7 K/uL (4.8-10.8)
[2017-04-03 21:43] LABS: INR 1.5 (0.9-1.2); PARTIAL THROMBOPLASTIN TIME 36.8 Seconds (25.6-37.1); PROTHROMBIN TIME 16.8 Seconds (9.8-13.1)
--- NOTE | 2017-04-03 21:56 | ED PDOC ---
HPI: CCC, URI, Sore Throat Time Seen by Provider: 04/03/17 20:09 Chief Complaint (Nursing): Syncope Chief Complaint (Provider): Flu like symptoms History Per: Patient History/Exam Limitations: no limitations Onset/Duration Of Symptoms: Days (2) Additional Complaint(s): 86yo female with history of A-fib (currently on coumadin), DVT, hypertension, CHF, presents to ER with complaints of rhinorrhea, dry cough, and a subjective fever for the past 2 days. Patient reports 2x episodes of vomiting as well as headache, generalized malaise and poor appetite. Patient's daughter at bedside who reports patient was weak earlier today and fell, but denies any loss of consciousness. No other medical complaints. Past Medical History Reviewed: Historical Data, Nursing Documentation, Vital Signs Vital Signs: Last Vital Signs Temp 98.5 F 04/03/17 19:59 Pulse 91 H 04/03/17 19:59 Resp 16 04/03/17 19:59 BP 105/55 L 04/03/17 19:59 Pulse Ox 97 04/03/17 22:31 - Medical History PMH: Atrial Fibrillation, CHF, HTN, Hyperlipidemia, Pulmonary Embolism Denies: HIV, Chronic Kidney Disease - Surgical History Surgical History: Denies: Pacemaker - Family History Family History: States: Unknown Family Hx - Home Medications Home Medications: Ambulatory Orders Medication Instructions Recorded Warfarin [Coumadin] 1 mg PO DAILY 11/10/16 Carvedilol [Coreg] 3.125 mg PO DAILY tab 11/11/16 Enalapril Maleate [Vasotec] 10 mg PO DAILY #30 tab 11/11/16 Furosemide [Lasix] 20 mg PO DAILY #30 tab 11/11/16 Dicyclomine [Bentyl] 20 mg PO Q12 PRN #20 tab 02/20/17 - Allergies Allergies/Adverse Reactions: Allergies Allergy/AdvReac Type Severity Reaction Status Date / Time No Known Allergies Allergy Verified 06/27/16 16:24 Review of Systems ROS Statement: Except As Marked, All Systems Reviewed And Found Negative Constitutional: Positive for: Fever (tactile), Malaise Gastrointestinal: Positive for: Vomiting, Other (poor appetite) Neurological: Positive for: Headache Physical Exam - Reviewed Nursing Documentation Reviewed: Yes Vital Signs Reviewed: Yes - Physical Exam Appears: Positive for: Non-toxic Head Exam: Positive for: ATRAUMATIC, NORMAL INSPECTION, NORMOCEPHALIC Skin: Positive for: Warm, Dry ENT: Positive for: Other (dry mucus membranes) Neck: Positive for: Supple Cardiovascular/Chest: Positive for: Regular Rate, Rhythm, Tachycardia Respiratory: Positive for: Normal Breath Sounds Gastrointestinal/Abdominal: Positive for: Normal Exam, Soft Extremity: Positive for: Normal ROM Neurologic/Psych: Positive for: Alert, Oriented - Laboratory Results Result Diagrams: 04/03/17 21:29 04/03/17 21:29 - ECG O2 Sat by Pulse Oximetry: 97 (RA) Pulse Ox Interpretation: Normal Medical Decision Making Medical Decision Making: Impression: 86yo female with flu like symptoms, clinical dehydration Plan: -- Labs -- CXR -- IF Fluids -- Initial tamiflu dose Time: 2228 Serology report indicated patient is flu positive. CXR reviewed and shows right middle lobe infiltrate. IV antibiotics ordered. Case discussed with Dr. Samson and patient to be admitted for influenza and pneumonia. Scribe Attestation: Documented by Tanja Urbano acting as a scribe for El Cadet MD. Provider Attestation: All medical record entries made by the Scribe were at my direction and personally dictated by me. I have reviewed the chart and agree that the record accurately reflects my personal performance of the history, physical exam, medical decision making, and the department course for this patient. I have also personally directed, reviewed, and agree with the discharge instructions and disposition. Disposition - Clinical Impression Clinical Impression: Influenza, Pneumonia - Patient ED Disposition Is Patient to be Admitted: Yes - Disposition Disposition Time: 22:29 Condition: FAIR Forms: [employer] (Ghanaian)
[2017-04-03 21:57] LABS: ALB/GLOB RATIO 1.2 (1.0-2.1); ALBUMIN 3.9 g/dL (3.5-5.0); CALCIUM 9.3 mg/dL (8.4-10.2)
[2017-04-03] MEDS ORDERED: Azithromycin 500 MG in Sodium Chloride 0.9% 250 ML IVPB STA (22:23)
[2017-04-03] MEDS ORDERED: cefTRIAXone (Rocephin) 1 gm Inj ONE (22:47)
[2017-04-03 22:59] LABS: SQUAMOUS EPITHIAL < 1 /hpf (0-5); URINE BACTERIA RARE (<OCC); URINE BILIRUBIN NEGATIVE (NEGATIVE); URINE BLOOD MODERATE (NEGATIVE); URINE CLARITY CLOUDY (Clear); URINE COLOR AMBER (YELLOW); URINE GLUCOSE (UA) NEG (Normal); URINE HYALINE CAST >20 /hpf (0-2); URINE LEUKOCYTE ESTERASE TRACE Leu/uL (Negative); URINE NITRATE NEGATIVE (NEGATIVE); URINE PROTEIN 30 mg/dL (NEGATIVE); URINE UROBILINOGEN 0.2-1.0 mg/dL (0.2-1.0)
--- NOTE | 2017-04-03 23:16 | CP.PCM.HP ---
History of Present Illness - History of Present Illness History of Present Illness: 86 yo ,f, PMhx/o CHF (LVEF 15-20%), chronic Afib, HTN, severe PVD (multiple stents) is brought in by daughter and granddaughter to ED with c/o dry cough started 2 days ago associated with subjective fever, nausea, b/l subcostal chest pain when coughing. Patient also reports low oral intake and had not solids today because reports that food is stuck in her throat and gives her nausea. Patient reports she feels weak and had dizziness today while trying to stand up from a chair and had loss of balance to the right side but she did not fall. She denies food aspiration, vomiting, diarrhea, SOB, precordial chest pain , dysuria. Reports + Sick contact at home with flu symptoms. PMD: [facility]. Last seen in clinid Dr Guevara 04/08 PMhx: CHF (LVEF 15-20%), chronic Afib, HTN, severe PVD Allergies: NKDA Meds: Enalapril 10 mg daily, Carvedidol 3.125 mg daily. Warfarin 1mg - Sunday and 2 mg Sunday. PSurghx: Left commun iliac artery stent. PShx: No ETOH, rect drugs, cig Ed Course VS: BP: 105/55 HR: 91 temp nl. O2 sat 97 Labs: CBC: 9.7>13.8<108 CMP: Bun/Cr 39/1.7 GFR: 28 Ua: Hyaline cast, hematuria. Flu test positive Imaging: EKG: Afib with PVC. LVH. -CXR: right middle lobe infiltrate Medications: Ceftriaxone, Azithromycin x 1 dose, Tamiflu x 1 dose, IV hydration Present on Admission - Present on Admission Any Indicators Present on Admission: No History of DVT/PE: No History of Uncontrolled Diabetes: No Urinary Catheter: No Review of Systems - Constitutional Constitutional: As Per HPI - Cardiovascular Cardiovascular: As Per HPI - Respiratory Respiratory: Cough. absent: Dyspnea - Gastrointestinal Gastrointestinal: As Per HPI - Musculoskeletal Musculoskeletal: As Per HPI Past Patient History - Past Medical History & Family History Past Medical History?: Yes - Past Social History Smoking Status: Never Smoked - CARDIAC Hx Atrial Fibrillation: Yes Hx Congestive Heart Failure: Yes Hx Hypertension: Yes Hx Pacemaker: No - PULMONARY Hx Pulmonary Embolism: Yes - NEUROLOGICAL Hx Neurological Disorder: No - HEENT Hx HEENT Problems: No - RENAL Hx Chronic Kidney Disease: No - ENDOCRINE/METABOLIC Hx Endocrine Disorders: No - HEMATOLOGICAL/ONCOLOGICAL Hx Human Immunodeficiency Virus (HIV): No - INTEGUMENTARY Hx Dermatological Problems: No - MUSCULOSKELETAL/RHEUMATOLOGICAL Hx Musculoskeletal Disorders: No Hx Falls: No - GASTROINTESTINAL Hx Gastrointestinal Disorders: No - GENITOURINARY/GYNECOLOGICAL Hx Genitourinary Disorders: No - PSYCHIATRIC Hx Psychophysiologic Disorder: No Hx Substance Use: No - SURGICAL HISTORY Hx Surgeries: Yes Hx Cardiac Catheterization: Yes Other/Comment: greenfiel filter - ANESTHESIA Hx Anesthesia: Yes Hx Anesthesia Reactions: Yes (DIFFICULTY WAKING) Hx Malignant Hyperthermia: No Meds Allergies/Adverse Reactions: Allergies Allergy/AdvReac Type Severity Reaction Status Date / Time No Known Allergies Allergy Verified 06/27/16 16:24 Physical Exam - Constitutional Appears: Non-toxic, No Acute Distress - Head Exam Head Exam: ATRAUMATIC, NORMOCEPHALIC - Eye Exam Eye Exam: Normal appearance - ENT Exam ENT Exam: Mucous Membranes Moist - Respiratory Exam Respiratory Exam: Rales. absent: Rhonchi, Wheezes Additional comments: left lung 2/3 field with rales, righ lung base scattered rales. - Cardiovascular Exam Cardiovascular Exam: Irregular Rhythm, +S1, +S2 - GI/Abdominal Exam GI & Abdominal Exam: Normal Bowel Sounds, Soft. absent: Guarding, Rebound - Extremities Exam Extremities exam: Positive for: normal inspection. Negative for: pedal edema - Neurological Exam Neurological exam: Alert, Oriented x3 - Psychiatric Exam Psychiatric exam: Normal Affect, Normal Mood - Skin Skin Exam: Intact Results - Vital Signs Recent Vital Signs: Last Vital Signs Temp 98.5 F 04/03/17 19:59 Pulse 91 H 04/03/17 19:59 Resp 16 04/03/17 19:59 BP 105/55 L 04/03/17 19:59 Pulse Ox 97 04/03/17 22:31 - Labs Result Diagrams: 04/03/17 21:29 04/03/17 21:29 Labs: Laboratory Results - last 24 hr 04/03/17 04/03/17 04/03/17 21:29 21:29 21:29 WBC 9.7 D RBC 4.71 Hgb 13.8 Hct 41.6 MCV 88.3 MCH 29.2 MCHC 33.1 RDW 12.8 Plt Count 108 L D MPV 11.2 Neut % (Auto) 79.5 H Lymph % (Auto) 10.3 L Bradford % (Auto) 9.8 Eos % (Auto) 0.0 Baso % (Auto) 0.4 Neut # (Auto) 7.8 H Lymph # (Auto) 1.0 Bradford # (Auto) 0.9 H Eos # (Auto) 0.0 Baso # (Auto) 0.0 PT 16.8 H INR 1.5 H APTT 36.8 Sodium 134 Potassium 3.6 Chloride 97 L Carbon Dioxide 25 Anion Gap 16 BUN 39 H Creatinine 1.7 H Est GFR ( Amer) 34 Est GFR (Non-Af Amer) 28 Random Glucose 143 H Lactic Acid Calcium 9.3 Total Bilirubin 0.6 AST 29 ALT 21 Alkaline Phosphatase 55 Total Protein 7.3 Albumin 3.9 Globulin 3.4 Albumin/Globulin Ratio 1.2 Influenza Typ A,B (EIA) 04/03/17 04/03/17 21:29 21:49 WBC RBC Hgb Hct MCV MCH MCHC RDW Plt Count MPV Neut % (Auto) Lymph % (Auto) Bradford % (Auto) Eos % (Auto) Baso % (Auto) Neut # (Auto) Lymph # (Auto) Bradford # (Auto) Eos # (Auto) Baso # (Auto) PT INR APTT Sodium Potassium Chloride Carbon Dioxide Anion Gap BUN Creatinine Est GFR ( Amer) Est GFR (Non-Af Amer) Random Glucose Lactic Acid 2.0 Calcium Total Bilirubin AST ALT Alkaline Phosphatase Total Protein Albumin Globulin Albumin/Globulin Ratio Influenza Typ A,B (EIA) Pos for influenza a H Assessment & Plan - Assessment and Plan (Free Text) Plan: 86 yo ,f, PMhx/o CHF (LVEF 15-20%), chronic Afib, HTN, severe PVD (multiple stents) admitted for PNA and Influenza Assessment/Plan 1) CAP -secondary to viral infection Influenza -CXR: right middle lobe infiltrate -Tamiflu positive -Tamiflu x 1 dose given. c/w Tamiflu renal dose -Ceftriaxone 1 g daily +Azithromycin 500mg daily -admit med surg 2) Influenza -Influenza test positive -Tamiflu 75 mg x 1 dose given -c/w renal dose Tamiflu 30 mg daily (Crcl 14) 3) Dehydration -secondary to viral infection and low oral intake -UA: Hyaline cast -Soft Hydration to prevent overload fluids -NS: 85 ml/h -f/o Orthostatic VS 4) Dysphagia -secondary nausea and viral infection -NPO except medications -Swallow test 5) NIKO -secondary to dehydration - Bun/Cr 39/1.7 GFR: 28 Ua: Hyaline cast -Last GFR >60 10/2016 -Soft Hydration to prevent overload fluids -NS: 85 ml/h 6) Chronic Afib -on Coumadinfor 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 -F/U Echo 7) CHF with reduce EF -last Echo (LVEF 15-20%) 10/2015 -c/w home medications -f/u Echo 8) PAD -had cath and vascular procedure in 05/2016 and 06/2016 at [facility] 9) HTN -c/w home medications 10) DVT Prophylaxis -c/w warfarin -Monitor INR. INR on admission 1.5 sub therapeutic.
[2017-04-04] MEDS ORDERED: Sodium Chloride 0.9% 1,000 ML IV STA (00:11)
[2017-04-04 07:16] LABS: BASO % 0.1 % (0.0-2.0); EOS % 0.1 % (0.0-4.0); HEMOGLOBIN 12.3 g/dL (12.0-16.0); LYMPH # 1.3 K/uL (1.0-4.3); MEAN CELL VOLUME 88.5 fl (81.0-99.0); MEAN CORPUSCULAR HEMOGLOBIN 29.5 pg (27.0-31.0); MEAN CORPUSCULAR HGB CONC 33.3 g/dL (33.0-37.0); MEAN PLATELET VOLUME 11.5 fl (7.2-11.7); MONO # 1.1 K/uL (0.0-0.8); MONO % 11.6 % (0.0-10.0); NEUT # 7.1 K/uL (1.8-7.0); NEUT % 74.2 % (50.0-75.0); NRBC % 0.1 % (0.0-0.0); RBC 4.19 Mil/uL (3.80-5.20); RED CELL DISTRIBUTION WIDTH 12.7 % (11.5-14.5); WHITE BLOOD COUNT 9.5 K/uL (4.8-10.8)
[2017-04-04 07:49] LABS: ALBUMIN 3.1 g/dL (3.5-5.0); ALT/SGPT 18 U/L (9-52); AST/SGOT 36 U/L (14-36); BLOOD UREA NITROGEN 28 mg/dl (7-17); CALCIUM 8.4 mg/dL (8.4-10.2); GFR AFRICAN-AMERICAN > 60; GFR NON-AFRICAN AMERICAN 53
--- NOTE | 2017-04-04 09:44 | CP.PCM.PN ---
Subjective - Date & Time of Evaluation Date of Evaluation: 04/04/17 Time of Evaluation: 07:10 - Subjective Subjective: Pt seen and examined at bedside. Reports improvement in symptoms. Denies SOB/CP/ N/V/dizziness. Objective - Vital Signs/Intake and Output Vital Signs (last 24 hours): Temp Pulse Resp BP Pulse Ox 98.8 F 88 14 116/68 97 04/04/17 08:07 04/04/17 08:07 04/04/17 08:07 04/04/17 08:07 04/04/17 08:07 - Medications Medications: Current Medications Acetaminophen (Tylenol 325mg Tab) 650 mg PO Q6 PRN PRN Reason: Pain, Mild (1-3) Acetaminophen (Tylenol 325mg Tab) 650 mg PO Q6 PRN PRN Reason: Fever >100.4 F Last Admin: 04/04/17 05:49 Dose: 650 mg Carvedilol (Coreg) 3.125 mg PO DAILY [facility] Enalapril Maleate (Vasotec) 10 mg PO DAILY [facility] Ceftriaxone Sodium 1 gm/ (Sodium Chloride) 100 mls @ 100 mls/hr IVPB DAILY [facility]ER PRN Reason: Protocol Azithromycin 500 mg/ Sodium (Chloride) 250 mls @ 250 mls/hr IVPB DAILY [facility]ER PRN Reason: Protocol Ondansetron HCl (Zofran Inj) 4 mg IVP Q6 PRN PRN Reason: Nausea/Vomiting Oseltamivir Phosphate (Tamiflu Susp) 30 mg PO DAILY [facility]ER PRN Reason: Protocol Warfarin Sodium (Coumadin) 1 mg PO DAILY [facility]ER PRN Reason: Protocol - Labs Labs: 04/04/17 07:00 04/04/17 05:40 PT 16.8 Seconds (9.8-13.1) H 04/03/17 21:29 INR 1.5 (0.9-1.2) H 04/03/17 21:29 APTT 36.8 Seconds (25.6-37.1) 04/03/17 21:29 - Constitutional Appears: Well, No Acute Distress - Eye Exam Eye Exam: EOMI - ENT Exam ENT Exam: Mucous Membranes Moist - Neck Exam Neck Exam: Full ROM - Respiratory Exam Additional comments: phlegmatous cough on all lung neely. - Cardiovascular Exam Cardiovascular Exam: +S1, +S2 - GI/Abdominal Exam GI & Abdominal Exam: Soft, Normal Bowel Sounds. absent: Tenderness Additional comments: afib - Extremities Exam Extremities Exam: absent: Calf Tenderness - Back Exam Back Exam: absent: CVA tenderness (L), CVA tenderness (R) - Neurological Exam Neurological Exam: Alert, Awake, CN II-XII Intact, Oriented x3 - Psychiatric Exam Psychiatric exam: Normal Affect, Normal Mood Assessment and Plan - Assessment and Plan (Free Text) Plan: 86 yo ,f, PMhx/o CHF (LVEF 15-20%), chronic Afib, HTN, severe PVD (multiple stents) admitted for PNA and Influenza Assessment/Plan 1) CAP -secondary to viral infection Influenza -CXR: right middle lobe infiltrate -Tamiflu positive -Tamiflu x 1 dose given. c/w Tamiflu renal dose -Ceftriaxone 1 g daily + Azithromycin 500mg daily -admit med surg 2) Influenza -Influenza test positive -Tamiflu 75 mg x 1 dose given -c/w renal dose Tamiflu 30 mg daily (Crcl 14) 3) Dehydration -secondary to viral infection and low oral intake -UA: Hyaline cast -Soft Hydration to prevent overload fluids -NS: 85 ml/h -f/o Orthostatic VS 4) Dysphagia -secondary nausea and viral infection -Swallow test: passed -Full liquid diet 5) NIKO -secondary to dehydration -Bun/Cr 39/1.7 GFR: 28 Ua: Hyaline cast -Last GFR >60 10/2016 -Soft Hydration to prevent overload fluids: NS: 85 ml/h 6) Chronic Afib -on Coumadin for 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 -F/U Echo 7) CHF with reduce EF -last Echo (LVEF 15-20%) 10/2015 -c/w home medications -f/u Echo 8) PAD -had cath and vascular procedure in 05/2016 and 06/2016 at [facility] 9) HTN -c/w home medications 10) DVT Prophylaxis -c/w warfarin -Monitor INR. INR on admission 1.5 sub therapeutic.
--- NOTE | 2017-04-04 10:19 | RAD ---
HISTORY: chest pain COMPARISON: 11/10/2016. FINDINGS: LUNGS: There is focal airspace disease in the right upper lobe. The lungs are well inflated. There is increased pulmonary venous congestion. PLEURA: No significant pleural effusion identified, no pneumothorax apparent. CARDIOVASCULAR: Normal. OSSEOUS STRUCTURES: No significant abnormalities. VISUALIZED UPPER ABDOMEN: Normal. OTHER FINDINGS: None. IMPRESSION: Airspace disease in the right upper lobe may represent developing pneumonia. Follow-up to resolution is advised.
[2017-04-04] MEDS ORDERED: Sodium Chloride 0.9% 1,000 ML IV SCH (10:45)
--- NOTE | 2017-04-04 14:10 | CARD ---
APPROVED REPORT EKG Measurement Heart [id number] <Conclusion> Atrial fibrillation with premature ventricular or aberrantly conducted complexes ST & T wave abnormality, consider lateral ischemia Abnormal ECG
[2017-04-04 15:01] LABS: BLOOD UREA NITROGEN 20 mg/dl (7-17); CALCIUM 7.9 mg/dL (8.4-10.2); GFR AFRICAN-AMERICAN > 60; GFR NON-AFRICAN AMERICAN 59
[2017-04-04 16:33] VITALS: RESP 20
[2017-04-04] MEDS: Sodium Chloride 0.9% 1,000 ML IV SCH ×2 (17:00→21:10)
[2017-04-04] MEDS: Azithromycin 500 MG in Sodium Chloride 0.9% 250 ML IVPB SCH (21:09)
[2017-04-04] MEDS ORDERED: Oseltamivir 6 MG/ML PO SCH (22:00)
[2017-04-05 06:33] LABS: HEMOGLOBIN 12.2 g/dL (12.0-16.0); MEAN CELL VOLUME 86.6 fl (81.0-99.0); MEAN CORPUSCULAR HEMOGLOBIN 29.2 pg (27.0-31.0); MEAN CORPUSCULAR HGB CONC 33.7 g/dL (33.0-37.0); RBC 4.17 Mil/uL (3.80-5.20); RED CELL DISTRIBUTION WIDTH 12.9 % (11.5-14.5); WHITE BLOOD COUNT 8.4 K/uL (4.8-10.8)
[2017-04-05 06:48] LABS: BLOOD UREA NITROGEN 13 mg/dl (7-17); CALCIUM 8.2 mg/dL (8.4-10.2); GFR AFRICAN-AMERICAN > 60; GFR NON-AFRICAN AMERICAN > 60
--- NOTE | 2017-04-05 07:15 | CP.PCM.PN ---
Subjective - Date & Time of Evaluation Date of Evaluation: 04/05/17 Time of Evaluation: 07:40 - Subjective Subjective: pt seen and examined at bedside. Reports continued improvement in symptoms. Daughter at bedside. Pt reports significant improvement with cough, non phlegmatous. Denies SOB/CP/ROBLES/N/V,dysuria. Objective - Vital Signs/Intake and Output Vital Signs (last 24 hours): Temp Pulse Resp BP Pulse Ox 100.3 F H 87 20 147/71 96 04/04/17 23:49 04/04/17 23:49 04/04/17 23:49 04/04/17 23:49 04/04/17 23:49 - Medications Medications: Current Medications Acetaminophen (Tylenol 325mg Tab) 650 mg PO Q6 PRN PRN Reason: Pain, Mild (1-3) Acetaminophen (Tylenol 325mg Tab) 650 mg PO Q6 PRN PRN Reason: Fever >100.4 F Last Admin: 04/04/17 05:49 Dose: 650 mg Carvedilol (Coreg) 3.125 mg PO DAILY [facility] Last Admin: 04/04/17 11:01 Dose: 3.125 mg Enalapril Maleate (Vasotec) 10 mg PO DAILY [facility] Last Admin: 04/04/17 11:00 Dose: 10 mg Ceftriaxone Sodium 1 gm/ (Sodium Chloride) 100 mls @ 100 mls/hr IVPB DAILY [facility] PRN Reason: Protocol Last Admin: 04/04/17 21:10 Dose: 100 mls/hr Azithromycin 500 mg/ Sodium (Chloride) 250 mls @ 250 mls/hr IVPB DAILY [facility] PRN Reason: Protocol Last Admin: 04/04/17 21:09 Dose: 250 mls/hr Sodium Chloride (Sodium Chloride 0.9%) 1,000 mls @ 42 mls/hr IV .[id number] [facility] Stop: 04/05/17 16:56 Last Admin: 04/04/17 21:10 Dose: 42 mls/hr Ondansetron HCl (Zofran Inj) 4 mg IVP Q6 PRN PRN Reason: Nausea/Vomiting Oseltamivir Phosphate (Tamiflu Susp) 30 mg PO DAILY [facility] PRN Reason: Protocol Last Admin: 04/04/17 21:10 Dose: 30 mg Warfarin Sodium (Coumadin) 1 mg PO ONCE ONE PRN Reason: Protocol Stop: 04/05/17 09:01 - Labs Labs: 04/05/17 05:35 04/05/17 05:35 PT 16.8 Seconds (9.8-13.1) H 04/03/17 21:29 INR 1.5 (0.9-1.2) H 04/03/17 21:29 APTT 36.8 Seconds (25.6-37.1) 04/03/17 21:29 - Constitutional Appears: Well, No Acute Distress - Eye Exam Eye Exam: EOMI - Neck Exam Neck Exam: Full ROM - Respiratory Exam Respiratory Exam: Clear to Ausculation Bilateral, NORMAL BREATHING PATTERN - Cardiovascular Exam Cardiovascular Exam: Irregular Rhythm, +S1, +S2 Additional comments: afib - GI/Abdominal Exam GI & Abdominal Exam: Soft, Normal Bowel Sounds. absent: Tenderness - Extremities Exam Extremities Exam: absent: Calf Tenderness - Back Exam Back Exam: absent: CVA tenderness (L), CVA tenderness (R) - Neurological Exam Neurological Exam: Alert, Awake, CN II-XII Intact, Oriented x3 - Psychiatric Exam Psychiatric exam: Normal Affect, Normal Mood Assessment and Plan - Assessment and Plan (Free Text) Plan: 86 yo f, PMhx/o CHF (LVEF 15-20%) stable, chronic Afib, HTN, severe PVD ( multiple stents) admitted for PNA and Influenza Assessment/Plan 1) CAP: R sided -secondary to viral infection Influenza -CXR: right middle lobe infiltrate -Tamiflu x 1 dose given. c/w Tamiflu renal dose -Ceftriaxone 1 g daily + Azithromycin 500mg daily -admit med surg and monitor vital signs 2) Influenza type A -Influenza test positive -Tamiflu 75 mg x 1 dose given for first dose -c/w renal dose Tamiflu 30 mg BID (Crcl 34) 3) NIKO: improved -secondary to dehydration -Bun/Cr 39/1.7 GFR: 28 Ua: Hyaline cast on 04/03/2017 -f/u labs on 04/05/2017: Bun/Cr: 13/0.7; GFR >60 4) Chronic Afib with cardiac thrombus -on Coumadin 1 mg q daily for 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 -F/U Echo: pending 5) CHF (stable) with reduce EF -last Echo (LVEF 15-20%) 10/2015 -c/w home medications -f/u Echo: pending 6) HTN -c/w home medications 7) PAD -had cath and vascular procedure in 05/2016 and 06/2016 at [facility] 8) DVT Prophylaxis -c/w warfarin -Monitor INR. INR on 04/05/2017 2.0.
[2017-04-05 07:33] LABS: PARTIAL THROMBOPLASTIN TIME 42.9 Seconds (25.6-37.1); PROTHROMBIN TIME 22.5 Seconds (9.8-13.1)
[2017-04-05] MEDS: Azithromycin 500 MG in Sodium Chloride 0.9% 250 ML IVPB SCH (09:51)
[2017-04-05] MEDS: Oseltamivir 6 MG/ML PO SCH ×2 (12:16→18:15)
--- NOTE | 2017-04-05 12:18 | CARD ---
APPROVED REPORT EXAM: Two-dimensional and M-mode echocardiogram with Doppler and color Doppler. Other Information Quality : GoodRhythm : Atrial Fibrillation INDICATION Atrial Fibrillation 2D DIMENSIONS IVSd0.94 (0.7-1.1cm)LVDd4.32 (3.9-5.9cm) LVOT Diameter1.90 (1.8-2.4cm)PWd0.70 (0.7-1.1cm) IVSs0.97 (0.8-1.2cm)LVDs3.19 (2.5-4.0cm) FS (%) 26.1 %PWs0.83 (0.8-1.2cm) M-Mode DIMENSIONS Left Atrium (MM)5.06 (2.5-4.0cm)IVSd0.76 (0.7-1.1cm) Aortic Root2.65 (2.2-3.7cm)LVDd5.41 (4.0-5.6cm) Aortic Cusp Exc.1.74 (1.5-2.0cm)PWd0.71 (0.7-1.1cm) IVSs1.24 cmFS (%) 20 % LVDs4.35 (2.0-3.8cm)PWs1.06 cm Mitral Valve E/A ratio0.0 TDI E/Lateral E'0.0E/Medial E'0.0 Pulmonary Valve PV Peak Xpwfxjor35.2cm/s Tricuspid Valve TR Peak [id number] [id number] Peak Gr.38mmHg [id number] LEFT VENTRICLE The left ventricle is normal in size. There is normal left ventricular wall thickness. - moderate to severe LV hypokinesia The patient is in atrial fibrillation so the function varied from one view to another. There is generalized moderate to severe LV hypokinesia the patient is in atrial fibrillation No left ventricle thrombus noted on this study. There is no ventricular septal defect visualized. There is no left ventricular aneurysm. There is no mass noted in the left ventricle. RIGHT VENTRICLE The right ventricle is normal size. There is normal right ventricular wall thickness. The right ventricular systolic function is normal. ATRIA The left atrium is moderately dilated. There is no thrombus suspected in the left atrium. The right atrium size is normal. The mid interatrial septum is thin and there is very small flow from the left atrium to the right atrium on doppler studies that has the appearance of a small PFO. The flow rate accross this PFO is - 1/meter second. AORTIC VALVE The aortic valve is moderately thickened and calcific.. There is mild aortic regurgitation. There is no aortic valvular stenosis. MITRAL VALVE The mitral valve is normal in structure. There is no evidence of mitral valve prolapse. There is no mitral valve stenosis. Mitral regurgitation is moderate. TRICUSPID VALVE The tricuspid valve is normal in structure. There is moderate to severe tricuspid regurgitation. Right ventricular systolic pressure is estimated at 46 mmHg. There is no tricuspid valve prolapse or vegetation. There is no tricuspid valve stenosis. PULMONIC VALVE The pulmonary valve is normal in structure. There is no pulmonic valvular regurgitation. GREAT VESSELS The aortic root is normal in size. The IVC is normal in size and collapses >50% with inspiration. PERICARDIAL EFFUSION The pericardium appears normal. There is no pleural effusion. <Conclusion> The left ventricle is normal in size and wall thickness. The patient is in atrial fibrillation so the function varied from one view to another. There is generalized moderate to severe LV hypokinesia The left atrium is moderately dilated. The aortic valve is moderately thickened and calcific but not stenotic and there is mild aortic regurgitation. The mitral valve is normal in structure and there is moderate mitral regurgitation. The tricuspid valve is normal and there is moderate to severe tricuspid regurgitation. The mid interatrial septum is thin and there is very small flow from the left atrium to the right atrium that has the appearance of a small PFO.
[2017-04-05] MEDS: Promethazine/Cod 6.25mg-10mg/5ml Syr UD PO SCH (18:19)
[2017-04-06 06:39] LABS: HEMOGLOBIN 11.6 g/dL (12.0-16.0); MEAN CELL VOLUME 87.5 fl (81.0-99.0); MEAN CORPUSCULAR HEMOGLOBIN 28.9 pg (27.0-31.0); RBC 4.01 Mil/uL (3.80-5.20); RED CELL DISTRIBUTION WIDTH 12.7 % (11.5-14.5); WHITE BLOOD COUNT 8.5 K/uL (4.8-10.8)
[2017-04-06 06:55] LABS: BLOOD UREA NITROGEN 10 mg/dl (7-17); CALCIUM 8.2 mg/dL (8.4-10.2); GFR AFRICAN-AMERICAN > 60; GFR NON-AFRICAN AMERICAN > 60
[2017-04-06 07:11] LABS: INR 2.3 (0.9-1.2); PROTHROMBIN TIME 26.1 Seconds (9.8-13.1)
[2017-04-06] MEDS: Azithromycin 500 MG in Sodium Chloride 0.9% 250 ML IVPB SCH (09:55)
[2017-04-06] MEDS: Oseltamivir 6 MG/ML PO SCH ×2 (09:55→17:42)
[2017-04-06] MEDS: Promethazine/Cod 6.25mg-10mg/5ml Syr UD PO SCH ×2 (10:02→17:41)
--- NOTE | 2017-04-06 10:03 | CP.PCM.PN ---
Subjective - Date & Time of Evaluation Date of Evaluation: 04/06/17 Time of Evaluation: 10:03 - Subjective Subjective: Patient seen and examined this morning, NAD, afebrile. Patient is c/o wet cough , muscle aches and dizziness when she gets up or walks. Patient denies any SOB, chest pain, numbness, tingling or urinary symptoms. Tolerating PO diet. PT saw patient yesterday, ambulates 40 feet with no AD, contact guard assist. Decreased mallory, mildly unsteadiness noted. Objective - Vital Signs/Intake and Output Vital Signs (last 24 hours): Temp Pulse Resp BP Pulse Ox 99.2 F 112 H 20 143/68 93 L 04/06/17 08:12 04/06/17 09:54 04/06/17 08:12 04/06/17 09:54 04/06/17 08:12 - Medications Medications: Current Medications Acetaminophen (Tylenol 325mg Tab) 650 mg PO Q6 PRN PRN Reason: Pain, Mild (1-3) Acetaminophen (Tylenol 325mg Tab) 650 mg PO Q6 PRN PRN Reason: Fever >100.4 F Last Admin: 04/04/17 05:49 Dose: 650 mg Carvedilol (Coreg) 3.[address] [facility] Last Admin: 04/06/17 09:54 Dose: 3.125 mg Enalapril Maleate (Vasotec) [address] [facility] Last Admin: 04/06/17 09:55 Dose: 10 mg Ceftriaxone Sodium 1 gm/ (Sodium Chloride) 100 mls @ 100 mls/hr IVPB DAILY [facility] PRN Reason: Protocol Last Admin: 04/06/17 09:56 Dose: 100 mls/hr Azithromycin 500 mg/ Sodium (Chloride) 250 mls @ 250 mls/hr IVPB DAILY [facility] PRN Reason: Protocol Last Admin: 04/06/17 09:55 Dose: 250 mls/hr Ondansetron HCl (Zofran Inj) 4 mg IVP Q6 PRN PRN Reason: Nausea/Vomiting Oseltamivir Phosphate (Tamiflu Susp) [address] [facility] PRN Reason: Protocol Last Admin: 04/06/17 09:55 Dose: 5 ml Promethazine HCl/Codeine (Phenergan/Codeine Oral Syrup) [address] [facility] Last Admin: 04/06/17 10:02 Dose: 5 ml - Labs Labs: 04/06/17 05:45 04/06/17 05:45 PT 26.1 Seconds (9.8-13.1) H 04/06/17 05:45 INR 2.3 (0.9-1.2) H 04/06/17 05:45 APTT 42.9 Seconds (25.6-37.1) H D 04/05/17 05:35 - Constitutional Appears: No Acute Distress - Head Exam Head Exam: ATRAUMATIC - Eye Exam Eye Exam: EOMI, Normal appearance, PERRL Pupil Exam: NORMAL ACCOMODATION - ENT Exam ENT Exam: Mucous Membranes Moist, Normal Exam - Neck Exam Neck Exam: Full ROM, Normal Inspection - Respiratory Exam Respiratory Exam: NORMAL BREATHING PATTERN (mild crackles on right side). absent: Accessory Muscle Use - Cardiovascular Exam Cardiovascular Exam: Tachycardia, Irregular Rhythm - GI/Abdominal Exam GI & Abdominal Exam: Soft, Normal Bowel Sounds - Extremities Exam Extremities Exam: Normal Capillary Refill. absent: Calf Tenderness - Back Exam Back Exam: absent: CVA tenderness (L), CVA tenderness (R) - Neurological Exam Neurological Exam: Alert, Awake, Oriented x3 - Psychiatric Exam Psychiatric exam: Normal Affect - Skin Skin Exam: Dry, Intact, Normal Color Assessment and Plan - Assessment and Plan (Free Text) Assessment: A/P: 86 yo female with PMH of CHF (LVEF 15-20%) stable, chronic Afib, HTN, severe PVD (multiple stents) admitted for PNA and Influenza 1) CAP: R sided -Secondary to viral infection Influenza -CXR: right middle lobe infiltrate -c/w Tamiflu renal dose, 30mg BID -Ceftriaxone 1 g daily + Azithromycin 500mg daily -Monitor VS and respiratory status 2) Influenza type A -Influenza test positive -Tamiflu 75 mg x 1 dose given for first dose -c/w renal dose Tamiflu 30 mg BID 3) NIKO: - Improved -Secondary to dehydration -Bun/Cr 10/0.7 GFR: 60 Ua: Hyaline cast on 04/03/2017 4) Chronic Afib with cardiac thrombus -Coumadin 1 mg q daily for 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 -Echo 04/05/17: No Thrombus found, small PFO with RA dila and A-fib, LV hypokinesis 5) CHF (stable) with reduce EF -Echo 04/05/17: No Thrombus found, small PFO with RA dila and A-fib, LV hypokinesis -Echo (LVEF 15-20%) 10/2015 -c/w Enalapril daily and Carvedilol BID 6) HTN -c/w home medications 7) PAD -had cath and vascular procedure in 05/2016 and 06/2016 at [facility] 8) DVT Prophylaxis -C/w warfarin -Monitor INR. INR on 04/06/2017 2.3.
[2017-04-07 07:29] LABS: INR 2.7 (0.9-1.2); PROTHROMBIN TIME 30.4 Seconds (9.8-13.1)
[2017-04-07 08:25] VITALS: BP 145/68; PULSE 88; TEMP 99; O2SAT 98
[2017-04-07] MEDS: Promethazine/Cod 6.25mg-10mg/5ml Syr UD PO SCH (09:49)
[2017-04-07] MEDS: Oseltamivir 6 MG/ML PO SCH (10:02)
[2017-04-07] MEDS: Azithromycin 500 MG in Sodium Chloride 0.9% 250 ML IVPB SCH (11:03)
--- NOTE | 2017-04-07 13:09 | CP.PCM.DIS ---
Provider - Provider Date of Admission: 04/03/17 22:25 Attending physician: Princess Ozuna MD Time Spent in preparation of Discharge (in minutes): 30 Diagnosis - Discharge Diagnosis (1) Influenza Status: Acute (2) Pneumonia Status: Acute Comment: Community acquired pneumonia Hospital Course - Lab Results Lab Results: Micro Results 04/03/17 22:23 Blood-Venous Blood Culture - Preliminary NO GROWTH AFTER 3 DAYS 04/03/17 21:22 Blood-Venous Blood Culture - Preliminary NO GROWTH AFTER 3 DAYS 04/03/17 22:24 Urine,Clean Catch Urine Culture - Final No Growth (<1,000 CFU/ML) Most Recent Lab Values WBC 8.5 K/uL (4.8-10.8) 04/06/17 05:45 RBC 4.01 Mil/uL (3.80-5.20) 04/06/17 05:45 Hgb 11.6 g/dL (12.0-16.0) L 04/06/17 05:45 Hct 35.1 % (34.0-47.0) 04/06/17 05:45 MCV 87.5 fl (81.0-99.0) 04/06/17 05:45 MCH 28.9 pg (27.0-31.0) 04/06/17 05:45 MCHC 33.0 g/dL (33.0-37.0) 04/06/17 05:45 RDW 12.7 % (11.5-14.5) 04/06/17 05:45 Plt Count 115 K/uL (130-400) L 04/06/17 05:45 MPV 11.5 fl (7.2-11.7) 04/04/17 07:00 Neut % (Auto) 74.2 % (50.0-75.0) 04/04/17 07:00 Lymph % (Auto) 14.0 % (20.0-40.0) L 04/04/17 07:00 Zavala % (Auto) 11.6 % (0.0-10.0) H 04/04/17 07:00 Eos % (Auto) 0.1 % (0.0-4.0) 04/04/17 07:00 Baso % (Auto) 0.1 % (0.0-2.0) 04/04/17 07:00 Neut # (Auto) 7.1 K/uL (1.8-7.0) H 04/04/17 07:00 Lymph # (Auto) 1.3 K/uL (1.0-4.3) 04/04/17 07:00 Zavala # (Auto) 1.1 K/uL (0.0-0.8) H 04/04/17 07:00 Eos # (Auto) 0.0 K/uL (0.0-0.7) 04/04/17 07:00 Baso # (Auto) 0.0 K/uL (0.0-0.2) 04/04/17 07:00 PT 30.4 Seconds (9.8-13.1) H 04/07/17 05:30 INR 2.7 (0.9-1.2) H 04/07/17 05:30 APTT 42.9 Seconds (25.6-37.1) H D 04/05/17 05:35 Sodium 136 mmol/l (132-148) 04/06/17 05:45 Potassium 4.1 MMOL/L (3.6-5.0) 04/06/17 05:45 Chloride 103 mmol/L (98-107) 04/06/17 05:45 Carbon Dioxide 23 mmol/L (22-30) 04/06/17 05:45 Anion Gap 14 (10-20) 04/06/17 05:45 BUN 10 mg/dl (7-17) 04/06/17 05:45 Creatinine 0.7 mg/dl (0.7-1.2) 04/06/17 05:45 Est GFR ( Amer) > 60 04/06/17 05:45 Est GFR (Non-Af Amer) > 60 04/06/17 05:45 Random Glucose 99 mg/dL (65-105) 04/06/17 05:45 Lactic Acid 2.0 MMOL/L (0.7-2.1) 04/03/17 21:49 Calcium 8.2 mg/dL (8.4-10.2) L 04/06/17 05:45 Total Bilirubin 0.5 mg/dl (0.2-1.3) 04/04/17 05:40 AST 36 U/L (14-36) D 04/04/17 05:40 ALT 18 U/L (9-52) 04/04/17 05:40 Alkaline Phosphatase 43 U/L (38-126) 04/04/17 05:40 Total Protein 6.4 G/DL (6.3-8.2) 04/04/17 05:40 Albumin 3.1 g/dL (3.5-5.0) L D 04/04/17 05:40 Globulin 3.2 gm/dL (2.2-3.9) 04/04/17 05:40 Albumin/Globulin Ratio 1.0 (1.0-2.1) 04/04/17 05:40 Urine Color Delmis (YELLOW) 04/03/17 22: Urine Clarity Cloudy (Clear) 04/03/17 22: Urine pH 5.0 (5.0-8.0) 04/03/17 22:23 Ur Specific Omro 1.020 (1.003-1.030) 04/03/17 22: Urine Protein 30 mg/dL (NEGATIVE) 04/03/17 22: Urine Glucose (UA) Neg mg/dL (Normal) 04/03/17 22: Urine Ketones Negative mg/dL (NEGATIVE) 04/03/17 22:23 Urine Blood Moderate (NEGATIVE) 04/03/17 22:23 Urine Nitrate Negative (NEGATIVE) 04/03/17: Urine Bilirubin Negative (NEGATIVE) 04/03/17 22: Urine Urobilinogen 0.2-1.0 mg/dL (0.2-1.0) 04/03/17 22:23 Ur Leukocyte Esterase Trace Cande/uL (Negative) 04/03/17 22: Urine RBC (Auto) 31 /hpf (0-3) H 04/03/17 22:23 Urine Microscopic WBC 5 /hpf (0-5) 04/03/17 22:23 Ur Squamous Epith Cells < 1 /hpf (0-5) 04/03/17 22:23 Urine Bacteria Rare (<OCC) 04/03/17 22: Hyaline Casts >20 /hpf (0-2) H 04/03/17 22:23 Influenza Typ A,B (EIA) Pos for influenza a (NEGATIVE) H 04/03/17 21:29 - Hospital Course Hospital Course: Patient is a 86 y/o F with PMH including HTN, Chronic Afib, HFrEF(LVEF 15-20%), PVD (multiple stents) who was admitted for PNA likely secondary to concomitant Influenza A infection. During admission, patient received renally dosed tamiflu for influenza. She received azithromycin for community acquired pneumonia. Patient improved and was able to walk over 40ft with PT. Decision was made to d/ c home with follow up to PCP. Discharge Exam - Head Exam Head Exam: ATRAUMATIC - Eye Exam Eye Exam: EOMI, Normal appearance - ENT Exam ENT Exam: Mucous Membranes Moist - Respiratory Exam Additional comments: B/L air entry present with scattered mild wheezes b/l, No rhonchii or rales, no signs of respiratory distress - Cardiovascular Exam Cardiovascular Exam: Irregular Rhythm, +S1, +S2 Additional comments: rate controlled - GI/Abdominal Exam GI & Abdominal Exam: Soft. absent: Distended, Rebound, Tenderness - Extremities Exam Additional comments: no calf tenderness or pedal edema - Neurological Exam Neurological exam: Alert, Oriented x3 - Psychiatric Exam Psychiatric exam: Normal Affect, Normal Mood - Skin Skin Exam: Dry, Warm Discharge Plan - Discharge Medications Prescriptions: Codeine Phosphate/Guaifenesin [Guaifen-Codeine 100-10 mg/5 ml] 0.5 tsp PO Q6H PRN #100 ml PRN Reason: Cough - Follow Up Plan Condition: FAIR Disposition: HOME/ ROUTINE Patient education suggested?: Yes Instructions: Flu, Pneumonia, Adult (DC) Additional Instructions: Continue oseltamavir to complete 5 days F/u with your PCP in 2 days on 04/09/17 ED precautions discussed Referrals: [facility] [place] [Outside]
== END 2017-04-07 15:10 | disposition home or self-care (01) | DRG 194 ==
LOC: H.ER 19:21 → H.ERHOLD 22:25 → H.MEDSURG1 04-04 15:24
PROVIDERS: ADMIT Family Medicine Geriatric Medicine; ATTEND Family Medicine Geriatric Medicine
DX: J10.00 Influenza due to other identified influenza virus with unspecified type of pneumonia (principal); N17.9 Acute kidney failure, unspecified; I48.2 Chronic atrial fibrillation; E86.0 Dehydration; I50.22 Chronic systolic (congestive) heart failure; I11.0 Hypertensive heart disease with heart failure; I73.9 Peripheral vascular disease, unspecified; R13.19 Other dysphagia; J10.1 Influenza due to other identified influenza virus with other respiratory manifestations; E78.5 Hyperlipidemia, unspecified; I25.2 Old myocardial infarction; Z79.01 Long term (current) use of anticoagulants; Z86.711 Personal history of pulmonary embolism